=== PATIENT | male | born 1970 | race Hispanic/Latino ===

== ENCOUNTER 2017-07-31 10:28 | Outpatient (CLI) | payer BC, OTHER ==
[2017-07-31] MEDS ORDERED: ISOVUE-370 76%-LOCM 1 ML ONE (13:58)
== END 2017-07-31 10:29 | disposition home or self-care (01) ==
LOC: BICCT 10:28
PROVIDERS: ATTEND Internal Medicine Hematology & Oncology
DX: C62.90 Malignant neoplasm of unspecified testis, unspecified whether descended or undescended (principal)
CPT/HCPCS: 71250; 71260; 74177

== ENCOUNTER 2023-07-04 08:11 | Day surgery (SDC) | payer BC ==
[2023-07-03 12:03] VITALS: BMI 30.6
[2023-07-04] MEDS ORDERED: Sodium Chloride 0.9% 100 ML ONE (09:00)
[2023-07-04] MEDS ORDERED: CEFAZOLIN 2 GM VIAL ONE (09:00)
[2023-07-04] MEDS ORDERED: EPINEPHrine 1 MG/ML VIAL ONE (10:05)
[2023-07-04] MEDS ORDERED: Bupivacaine 0.25% HCL 30 ML VIAL ONE (10:05)
[2023-07-04] MEDS ORDERED: Rocuronium Bromide 10 MG/ML (10ML VIAL) ONE (10:23)
[2023-07-04] MEDS ORDERED: Lidocaine 2% PF 5 ML VIAL ONE (10:23)
[2023-07-04] MEDS ORDERED: Dexamethasone 4 mg/ml Vial ONE (10:23)
[2023-07-04] MEDS ORDERED: Ondansetron PF 4 MG/2 ML Vial ONE (10:23)
[2023-07-04] MEDS ORDERED: fentaNYL PF 100 MCG/2 ML SYRINGE ONE (10:23)
[2023-07-04] MEDS ORDERED: PROPOFOL 40 ML ONE (10:24)
[2023-07-04] MEDS ORDERED: Midazolam HCl 2 mg/2 ml Vial ONE (10:24)
[2023-07-04] MEDS ORDERED: ePHEDrine Sulfate 50 MG/10 ML VIAL ONE (11:59)
[2023-07-04] MEDS ORDERED: Glycopyrrolate 0.2 MG/ML 5 ML SYRINGE ONE (12:04)
[2023-07-04] MEDS ORDERED: SUGAMMADEX SODIUM 200 MG/2 ML VIAL ONE (12:07)
== END 2023-07-04 14:03 | disposition home or self-care (01) ==
LOC: SDC 08:11
PROVIDERS: ATTEND Surgery
PROC: 0JB70ZZ Excision of Back Subcutaneous Tissue and Fascia, Open Approach (ICD-10-PCS; principal; 2023-07-04)
DX: M72.4 Pseudosarcomatous fibromatosis (principal); G43.909 Migraine, unspecified, not intractable, without status migrainosus; Z87.891 Personal history of nicotine dependence; Z79.899 Other long term (current) drug therapy; Z98.890 Other specified postprocedural states
CPT/HCPCS: 88305; J0171; J0665; J1100; J2001; J2250; J2405; J2704; J3490